=== PATIENT | male | born 1950 | race Caucasian/White ===

== ENCOUNTER 2024-07-17 07:58 | Day surgery (SDC) | payer MEDICARE, SELFPAY ==
[2024-07-14 14:24] VITALS: BMI 36.6
[2024-07-17 08:22] VITALS: BP 142/77; PULSE 53; RESP 18; TEMP 36.1; O2SAT 97; BMI 31.5
[2024-07-17] MEDS: LACTATED RINGERS 1000ML 1,000 ML 25 ML IV (08:22)
--- NOTE | 2024-07-17 08:24 | EXP.ANES.CKL ---
[facility] Disclaimer: The information contained in this section may have been updated after the patient was seen, as this information can be updated by other users. Medical History Rheumatoid arthritis Hypertension Surgical History Previous back surgery H/O knee surgery History of cholecystectomy History of appendectomy History of colonoscopy Family History Other No significant family history Social History Smoking Status: Never smoker alcohol intake: never substance use type: denies use current occupational status: retired Travel in the last 8 weeks: None [facility] Anesthesia Checklist Patient Identification Patient Identification: Arm Band and Verbal (Name & ) Structural Data Admitted From: Home Planned Operative Procedure/s: Colonoscopy Consent for Planned Operative Procedure(s) Verified: Yes Verified Documents: Surgical Consent and History and Physical NPO Status Verified Time NPO: 00:00 Additional verifications Anesthesia Reactions: No Airway Assessment Mallampati Score:: Class III C-Spine Mobility Assessed: Yes TMJ Mobility Assessed: Yes Dentition: Good Dentition Neurological Assessment Level of Consciousness: Awake Hx Seizures: No Numbness or tingling in extremities: No Anesthesia Plan Anesthesia Risk discussed: Yes Anesthesia Plan: Verified ASA Class: II Anesthesia Type: MAC
[2024-07-17 08:34] VITALS: O2SAT 100
--- NOTE | 2024-07-17 08:39 | EXP.HP ---
History of Present Illness *Admission Date: 07/17/24 *Reason for visit:: Family history/personal history of adenomatous polyps *History of present illness: Mr. Pinzon is a 73-year-old gentleman who is here for surveillance colonoscopy and it has been more than 5 years. He does have a personal history of adenomatous polyps and a family history. His sister had colon cancer at the age of 58.. The examination is deemed medically necessary for surveillance colonoscopy. The patient has been seen, interviewed and examined prior to the procedure by both myself and the anesthesia provider. [facility] Disclaimer: The information contained in this section may have been updated after the patient was seen, as this information can be updated by other users. Medical History Rheumatoid arthritis Hypertension Surgical History Previous back surgery H/O knee surgery History of cholecystectomy History of appendectomy History of colonoscopy Family History Other No significant family history Social History (Updated 07/17/24 @ 08:25 by Saul Orozco CRNA) Smoking Status: Never smoker alcohol intake: never substance use type: denies use current occupational status: retired Travel in the last 8 weeks: None Review of Systems Review of Systems Review of systems (narrative): Negative *Cardiovascular Comments: Negative *Gastrointestinal Comments: Negative *Genitourinary Comments: Negative *Musculoskeletal Comments: Negative *Neurologic Comments: Negative Meds Home Medications and Allergies Home Medications ?Medication ?Instructions ?Recorded ?Confirmed ?Type adalimumab 40 mg/0.8 mL 40 mg SQ WEEKLY 07/17/24 07/17/24 History subcutaneous syringe kit (Humira) prednisone 5 mg tablet 5 mg PO DAILY 07/17/24 07/17/24 History simvastatin 20 mg tablet 20 mg PO DAILY 07/17/24 07/17/24 History telmisartan 40 mg tablet 40 mg PO DAILY 07/17/24 07/17/24 History New Prescriptions to Start Prescriptions: Allergies Allergy/AdvReac Type Severity Reaction Status Date / Time No Known Allergies Allergy Verified 07/17/24 08:17 Exam Data for Last 24 hours Vital signs and Labs for Last 24 Hours: Temp Pulse Resp BP Pulse Ox O2 Del Method O2 Flow Rate 97 F L 53 L 18 142/77 H 97 Nasal Cannula 5 07/17/24 08:22 07/17/24 08:22 07/17/24 08:22 07/17/24 08:22 07/17/24 08:22 07/17/24 08:34 07/17/24 08:34 I & O for Last 24 hours: Intake & Output 07/14/24 07/15/24 07/16/24 07/17/24 23:59 23:59 23:59 23:59 Weight 200 lb 220 lb *Routine HEENT Exam Head: Present normocephalic Eye: Present EOMI and PERRL ENT: Present mucous membranes moist *Routine Neck Exam Neck: Present supple *Routine Respiratory Exam Respiratory: Present CTA bilaterally *Routine Cardiovascular Exam Cardiovascular: Present RRR *Routine Abdominal Exam Abdominal: Present soft and normoactive bowel sounds; Absent tenderness *Routine Rectal Exam Rectal:: deferred *Routine Genitalia Exam Genitalia:: deferred *Routine Extremities Exam Extremities: Absent cyanosis, clubbing or edema *Routine Skin Exam Skin: Present warm; Absent rash *Routine Neurological Exam Neurological: Present alert and oriented X3 Assessment and Plan *Assessment and plan (1) Personal history of adenomatous and serrated colon polyps: Status: Acute Category: Medical Code(s): Z86.0101 - Personal history of adenomatous and serrated colon polyps (2) Family history of colon cancer: Status: Acute Category: Medical Code(s): Z80.0 - Family history of malignant neoplasm of digestive organs Plan A/P: 1. Surveillance colonoscopy secondary to family history and personal history of adenomatous polyps is the preprocedural diagnosis. The patient will be anesthetized/sedated using MAC sedation. The patient has been seen and examined. Cardiac and lung assessment prior to the examination is stable. Proceed with planned colonoscopy
--- NOTE | 2024-07-17 09:14 | P.PCN_ITS ---
[facility] Procedure Note Date: 07/17/24 Time: 09:14 Procedure Note:: Colonoscopy Procedure Report: Colonoscopy with EMR (endoscopic mucosal resection) and cold snare polypectomy Endoscopist: Valdo Long II, MD Referring physician: Kash Peace MD Date of Procedure: July 17, 2024 Equipment: Olympus 190 variable stiffness pediatric colonoscope Sedation: MAC sedation Indication: Mr. Pinzon is a 73-year-old gentleman who is here for follow-up surveillance colonoscopy secondary to a personal history of adenomatous colon polyps and family history of colon cancer. His sister had advanced colon cancer at the age of 58. The patient does report some intermittent hemorrhoidal bleeding and prolapse. He has had some loose stools over the last couple of weeks but has begun taking cod liver oil. He reports no abdominal pain or weight loss. Procedure: Prior to the procedure, a history and physical exam was performed, and patient's medications and allergies were reviewed. The risks, benefits and alternatives of the sedation and procedure were discussed with the patient. All questions were answered and informed consent was obtained. The patient was brought to the procedure room. Patient identification and proposed procedure were verified by the physician and the nurse. The patient was placed in a left lateral decubitus position and the scope was passed under direct vision. Throughout the procedure, the patient's blood pressure, pulse, and oxygen saturations were monitored continuously. The colonoscopy was accomplished without difficulty. The patient tolerated the procedure well. Findings: On digital rectal examination there was normal rectal tone. There were no external hemorrhoids. The prostate was 2+, smooth, soft, symmetric without nodules. The colonoscope was introduced through the anal canal to the rectum and advanced to the cecum. The ileocecal valve and appendiceal orifice were identified. The scope was advanced a short distance into the ileum which appeared grossly normal. The scope was then withdrawn into the colon. Within the cecum there was a 18 to 19 mm laterally spreading granular adenoma which was sessile. The base of the polyp was lifted with Eleview 10 mL and then an additional 5 mL of saline was utilized. After lifting the polyp, this was removed in piecemeal resection with hot snare soft coagulation. There was 1 flat portion of the polyp that was more difficult to remove so the cold snare was utilized to remove this. After removal, the polypectomy site was washed. There was 1 small portion that was removed via soft coagulation hot biopsy forceps avulsion until there is no further adenomatous tissue visualized. There was 1 small vessel that was coagulated using the hot biopsy forceps. After complete removal, 2 endoclips were utilized to close the polypectomy site. There was an additional 5 mm polyp in the ascending colon removed via cold snare polypectomy. The remaining cecum, ascending and transverse colon and mucosa were grossly normal. There were scattered diverticuli throughout the descending and sigmoid colon (LEFT colon). The rectum itself was normal. Upon retroflexion within the rectum there were grade 2 internal hemorrhoids. The preparation was excellent throughout with [place] Preparation Score of 9. The cecal time was 17 minutes. Impression: 1. Larger cecal adenoma (18 to 19 mm)?laterally spreading granular adenoma status post EMR resection 2. Diminutive ascending polyp 3. Left-sided diverticulosis 4. Grade 2 internal hemorrhoids Plan: I will follow-up the polyp histology and recommend shorter surveillance interval based upon the larger adenomatous polyp. I would encourage psyllium bulking fiber supplementation on a maintenance basis.
[2024-07-17 09:16] VITALS: BP 100/63; PULSE 56; RESP 16; TEMP 36.6; O2SAT 95
[2024-07-17 09:26] VITALS: BP 100/61; PULSE 56; RESP 16; TEMP 36.6; O2SAT 95
[2024-07-17 09:36] VITALS: BP 113/69; PULSE 65; RESP 16; O2SAT 95
[2024-07-17 09:46] VITALS: BP 110/69; PULSE 67; RESP 16; O2SAT 95
== END 2024-07-17 10:03 | disposition home or self-care (01) ==
PROVIDERS: PCP Internal Medicine; Visit Provider Internal Medicine Gastroenterology
PROC: (CPT 45381; principal; 2024-07-17 09:30)
DX: D12.0 Benign neoplasm of cecum (principal); K63.5 Polyp of colon; K57.30 Diverticulosis of large intestine without perforation or abscess without bleeding; K64.1 Second degree hemorrhoids; Z86.0101 Personal history of adenomatous and serrated colon polyps; Z80.0 Family history of malignant neoplasm of digestive organs
CPT/HCPCS: 45381; 45385; 45390; 88305; J7120